=== PATIENT | female | born 1960 | race Caucasian/White ===

== ENCOUNTER 2023-01-09 12:37 | Emergency (ER) | payer BC, SELFPAY ==
[2023-01-09 12:51] VITALS: BP 165/96; PULSE 97; RESP 14; TEMP 36.7; O2SAT 99; BMI 30.9
[2023-01-09 15:45] VITALS: BP 176/66; PULSE 90; RESP 16; TEMP 37.1; O2SAT 95
[2023-01-09 16:40] VITALS: BP 184/101; PULSE 88; RESP 18; O2SAT 96
--- NOTE | 2023-01-09 16:55 | W.ED.EYEPROB ---
HPI - Eye Problem General: Chief complaint: Eye Problems Stated complaint: Went blind LT eye Time Seen by Provider: 01/09/23 16:50 Source: patient Mode of arrival: ambulatory History of Present Illness: 62-year-old female who presents emergency room complaining of left eye pain and burning. She has a history of glaucoma she is evaluated yesterday because she been having increasing pain in the eye doctor there thought her eye was fine and she was discharged home she had her eyes dilated at the time this morning she woke up with pain and blurring particular in the left eye MD chief complaint: eye pain and eye redness Onset (ago): hour(s) (8-10) Onset description: awoke with symptoms Duration: constant Location: left eye Eye Symptoms: burning, redness, pain and blurry vision Place: home Severity: moderate If Pain, Quality: burning Associated symptoms: Denies cough, fever(s), headache(s), nausea, neck pain, numbness, rhinorrhea, short of breath, vomiting or weakness Review of Systems Const: Denies: fever(s) or chills ENMT: Denies: throat pain, ear or mastoid pain, nasal discharge or nasal congestion Card: Denies: chest pain Resp: Denies: dyspnea GI: Denies: nausea or vomiting Musc: Denies: neck pain Skin/Breast: Denies: rash or pruritus Neuro: Denies: headache(s) PFS ED PFSH: Medical History (Updated 01/09/23 @ 17:40 by Junior Walsh DO) Glaucoma Physical Exam Const: GENERAL APPEARANCE: cooperative and comfortable ORIENTATION/CONSCIOUSNESS: Yes awake, Yes oriented to person, Yes oriented to place and Yes oriented to time HENMT: COMMON NORMALS: normocephalic, atraumatic and hearing grossly normal bilaterally HEAD & SCALP: normocephalic and atraumatic Resp: COMMON NORMALS: normal respiratory effort, No retractions, No use of accessory muscles and clear to auscultation bilaterally AUSCULTATION: clear to auscultation bilaterally Cardio: COMMON NORMALS: regular rate, regular rhythm and No murmurs present (Cardio) RATE: regular rate RHYTHM: regular rhythm GI: COMMON NORMALS: Soft to palpation and No hepatosplenomegaly present AUSCULTATION: Yes normoactive bowel sounds PALPATION: Yes Soft to palpation, No Tenderness to palpation present (GI), No Guarding due to palpation present (GI) and Yes No hepatosplenomegaly present Extremity: COMMON NORMALS: normal to inspection, capillary refill normal, no clubbing, cyanosis or edema, no calf tenderness and no pedal edema Neuro: SENSORIUM/ORIENTATION: Yes oriented to person, Yes oriented to place and Yes oriented to time Skin: COMMON NORMALS: no rashes or lesions noted GENERAL SKIN EXAM: no rashes or lesions noted Course Vital Signs: Vital signs: Vital Signs Temperature 98.7 F 01/09/23 15:45 Pulse Rate 80 01/09/23 18:37 Respiratory Rate 18 01/09/23 18:37 Blood Pressure 170/90 01/09/23 18:37 Pulse Oximetry 98 01/09/23 18:37 Oxygen Delivery Me thod Room Air 01/09/23 16:40 MDM - Eye Problem Medical Decision Making Ocular pressure evaluated the bedside of the tonometer. 3 good readings of 7071 and 74. Clinically patient appears to have acute glaucoma. Suspect it is from the dilation of the I contacted Dr. Tejada she has had this for all day and has significant vision disruption with it. He advised for us to give her Diamox 500 mg once as well as Cosopt eyedrop. We will discharge patient directly from the ER to his office where he will treat further. Return if she has further problems. She was discharged with her she was given the address for his office. Dr. Tejada is waiting to see her there. Medical Records I reviewed the patient's medical records. Lab Data I reviewed the patient's lab results. Discharge Plan Discharge Patient Disposition: Home Clinical Impression: Acute angle-closure glaucoma Condition: Stable Discharge Orders: Discharge ED (Routine); Ordered 01/09/23 Ordered By: Junior Walsh Referrals: Shar Tejada MD [Physician] - Patricia Garcia FNP [Primary Care Provider] - Discharge Diet: Usual diet Discharge Activity: Limit activity as instructed Patient Instructions: Opioid Safety, Pain Management Coding Level of Care Code ED [employer] for Rose Welch
[2023-01-09] MEDS: tetracaine 0.5% Op Soln 4 mL Btl 1 DROP EYE-LEFT (17:01)
[2023-01-09] MEDS: dorzolamide/timolol Op Soln 10 mL Btl 1 DROP EYE-LEFT (17:48)
[2023-01-09] MEDS: acetaZOLAMIDE 250 mg Tablet 500 MG PO (17:50)
[2023-01-09 18:37] VITALS: BP 170/90; PULSE 80; RESP 18; O2SAT 98
== END 2023-01-09 18:39 | disposition home or self-care (01) ==
PROVIDERS: Emergency Provider Family Medicine; PCP Nurse Practitioner Family
DX: H40.212 Acute angle-closure glaucoma, left eye (principal)
CPT/HCPCS: 99283